=== PATIENT | male | born 1935 | race Caucasian/White ===

== ENCOUNTER 2017-07-23 13:18 | Inpatient (IN) | payer MEDICARE ==
[~2017-07-23] VITALS: Ht 182.9 cm; Wt 97.3 kg
--- NOTE | ~2017-07-23 | PN ---
PATIENT:EJ CROWLEY MEDICAL RECORD: [id number] LOCATION:[facility] ADMISSION DATE: 07/23/17 PROGRESS NOTE DATE OF SERVICE: 07/28/2017 SUBJECTIVE: The patient's case was discussed with staff. He has no new complaint. OBJECTIVE: The patient is in good behavioral control with limited insight about his condition. He tolerates his medicines well. ASSESSMENT: No change in diagnoses. PLAN: Brief supportive and educational interventions were made. The patient will be maintained on current medicines. His long-term prognosis is guarded. TRANSINT:[id number] Voice Confirmation ID: [id number] DOCUMENT ID: [id number] MIKE BOSWELL MD at 1308 CC: [id number] DICTATION DATE: 07/28/17 1413 PRODUCE BUYER: 07/28/17 1436 ADM IN [facility] [address] [place] [address]
--- NOTE | ~2017-07-23 | PN ---
PATIENT:EJ CROWLEY MEDICAL RECORD: [id number] LOCATION:[facility] ADMISSION DATE: 07/23/17 PROGRESS NOTE DATE OF SERVICE: 08/05/2017 SUBJECTIVE: The patient's case was discussed with staff. He has no new complaint. OBJECTIVE: The patient is in good behavioral control with limited insight about his condition. He has no active thoughts of harming himself or others. ASSESSMENT: No change in diagnoses. PLAN: The [facility] will be [facility] to the [facility] today. His long-term prognosis is guarded. TRANSINT:[id number] Voice Confirmation ID: [id number] DOCUMENT ID: [id number] MIKE BOSWELL MD at 1412 CC: [id number] DICTATION DATE: 08/05/17 1346 INDUSTRIAL CONTROLLER: 08/05/17 1442 DIS IN 08/05/17 [address] [place] [address]
--- NOTE | ~2017-07-23 | PN ---
PATIENT:EJ CROWLEY MEDICAL RECORD: [id number] LOCATION:[facility] ADMISSION DATE: 07/23/17 PROGRESS NOTE DATE OF SERVICE: 08/04/2017 SUBJECTIVE: The patient's case was discussed with staff. He has no new complaint. OBJECTIVE: The patient is in good behavioral control with limited insight about his condition. He tolerates his medicines well. ASSESSMENT: No change in diagnosis. PLAN: I anticipate the patient can be transitioned out of the hospital tomorrow. The family has decided that they do not want long-term care in the group home and he will be returned to his home and the family is going to care for him. TRANSINT:[id number] Voice Confirmation ID: [id number] DOCUMENT ID: [id number] MIKE BOSWELL MD at 1339 CC: [id number] DICTATION DATE: 08/04/17 1448 INSURANCE APPRAISER: 08/04/17 1711 DIS IN 08/05/17 [facility] [address] [place] [address]
--- NOTE | ~2017-07-23 | PN ---
PATIENT:EJ CROWLEY MEDICAL RECORD: [id number] LOCATION:[facility] ADMISSION DATE: 07/23/17 PROGRESS NOTE DATE OF SERVICE: 07/26/2017 SUBJECTIVE: The patient's case was discussed with staff. He has no new complaint. OBJECTIVE: The patient is in good behavioral control, but severely impaired cognitively. He is not eating as well as I would like, but he is also significantly overweight. ASSESSMENT: No change in diagnoses. PLAN: Supportive and educational interventions were made. Long-term prognosis is guarded. TRANSINT:[id number] Voice Confirmation ID: [id number] DOCUMENT ID: [id number] MIKE BOSWELL MD at 1435 CC: [id number] DICTATION DATE: 07/26/17 1444 ELECTROCARDIOGRAM TECHNICIAN: 07/26/17 1639 ADM IN [facility] [address] [place] [address]
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
--- NOTE | ~2017-07-23 | PN ---
PATIENT:EJ CROWLEY MEDICAL RECORD: [id number] LOCATION:[facility] ADMISSION DATE: 07/23/17 PROGRESS NOTE DATE OF SERVICE: 07/29/2017 SUBJECTIVE: The patient's case was discussed with staff. He has no new complaint. OBJECTIVE: The patient is in good behavioral control and has no thoughts of harming himself or others. He is sleeping and eating reasonably well. ASSESSMENT: No change in diagnoses. PLAN: Current medicines have been reviewed and will be maintained. Long-term prognosis is guarded. TRANSINT:[id number] Voice Confirmation ID: [id number] DOCUMENT ID: [id number] MIKE BOSWELL MD at 1324 CC: [id number] DICTATION DATE: 07/29/17 1414 COMPLIANCE ANALYST: 07/29/17 1430 ADM IN [place] [id number] [place] [address]
--- NOTE | ~2017-07-23 | PN ---
PATIENT:EJ CROWLEY MEDICAL RECORD: [id number] LOCATION:[facility]112 ADMISSION DATE: 07/23/17 PROGRESS NOTE DATE OF SERVICE: 07/27/2017 SUBJECTIVE: The patient's case was discussed with staff. He has no new complaint. OBJECTIVE: The patient is not eating well, but he is sleeping well. He is impaired cognitively, but has not been aggressive here. ASSESSMENT: No change in diagnoses. PLAN: The patient will be maintained on current medicines, which I have reviewed. I am electing not to start him on an appetite stimulating medicine despite how he has eaten in the past 2 days. He is significantly overweight. He says he does not like the food we prepare. I do not think it is necessary at this point. In addition to this, I am going to start him on a low dose of Namenda for its memory enhancing properties. He will be monitored for clinical changes associated with its use. TRANSINT:[id number] Voice Confirmation ID: [id number] DOCUMENT ID: [id number] MIKE BOSWELL MD at 1352 CC: [id number] DICTATION DATE: 07/27/17 1447 SOLE MOLDING MACHINE OPERATOR: 07/27/17 1607 ADM IN [address] [id number] [place] [address]
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
--- NOTE | ~2017-07-23 | PN ---
PATIENT:EJ CROWLEY MEDICAL RECORD: [id number] LOCATION:[place]112 ADMISSION DATE: 07/23/17 PROGRESS NOTE DATE OF SERVICE: 08/02/2017 SUBJECTIVE: The patient's case was discussed with staff. He has no new complaint. OBJECTIVE: The patient denies intent to harm himself or others. He is oriented to person and place, but not to time or situation. He has not been aggressive. He does have a Depakote level that is close to therapeutic from a week ago. I am going to order another level. ASSESSMENT: No change in diagnoses. PLAN: Current medicines and therapies have been reviewed. I anticipate him being transitioned out of the hospital soon if this level of improvement is maintained. TRANSINT:[id number] Voice Confirmation ID: [id number] DOCUMENT ID: [id number] MIKE BOSWELL MD at 1458 CC: [id number] DICTATION DATE: 08/02/17 1426 GLUER AND WEDGER: 08/02/17 1435 ADM IN [place] [address] [place] [id number]
--- NOTE | ~2017-07-23 | PN ---
PATIENT:EJ CROWLEY MEDICAL RECORD: [id number] LOCATION:JORGE [facility]112 ADMISSION DATE: 07/23/17 PROGRESS NOTE DATE OF SERVICE: 07/30/2017 SUBJECTIVE: No new complaint. OBJECTIVE: Staff is currently working on placement. Report has been submitted to [facility] and associates. The patient has been cooperative. On exam, mood is pleasant. Affect overall was constricted. Speech is rather terse. Content of thought shows no evidence of overt psychosis. Sensorium shows no change. ASSESSMENT: No change in diagnosis. PLAN: 1. Continue current medication. 2. Continue supportive therapy. TRANSINT:[id number] Voice Confirmation ID: [id number] DOCUMENT ID: [id number] LOGAN JAVIER III, MD at 0535 CC: [id number] DICTATION DATE: 07/30/17 1121 REFINERY TECHNICIAN: 07/30/17 1326 ADM IN [id number] [place] [address]
--- NOTE | ~2017-07-23 | PN ---
PATIENT:EJ CROWLEY MEDICAL RECORD: [id number] LOCATION:JOR[facility]112 ADMISSION DATE: 07/23/17 PROGRESS NOTE DATE OF SERVICE: 08/03/2017 SUBJECTIVE: The patient's case was discussed with staff. He has no new complaint. OBJECTIVE: The patient is in good behavioral control with poor insight about his condition. He tolerates his medicines well. ASSESSMENT: No change in diagnoses. PLAN: The patient is going to be placed in a halfway in [facility] has declined him. He is still being considered by Geovanna Mendez as a possible new patient. Once arrangement for placement has been made, I anticipate he can be discharged. TRANSINT:[id number] Voice Confirmation ID: [id number] DOCUMENT ID: [id number] MIKE BOSWELL MD at 1436 CC: [id number] DICTATION DATE: 08/03/17 1508 DIGITAL MEDIA INTERN: 08/03/17 1536 ADM IN [address] [place] [place] [address]
[2017-07-23 14:11] VITALS: BP 125/87; BMI 32.6
[2017-07-23] MEDS ORDERED: DEPAKOTE500 MG PO (16:04)
[2017-07-23] MEDS ORDERED: LIPITOR80 MG PO (16:05)
[2017-07-23] MEDS ORDERED: FISH OIL 1,0001 CA1 PO (16:05)
[2017-07-23] MEDS ORDERED: VITAMIN B-12500 MC1 PO (16:06)
[2017-07-23] MEDS ORDERED: ASPIRIN325 MG PO (16:06)
[2017-07-23] MEDS ORDERED: FERRETTS324 MG PO (16:07)
[2017-07-23] MEDS ORDERED: MIRALAX17 GM PO (16:07)
[2017-07-23] MEDS ORDERED: OYSCO 500+D TAB1 TAB PO (16:07)
[2017-07-23] MEDS ORDERED: ASCORBIC ACID500 MG PO (16:08)
[2017-07-23] MEDS ORDERED: SENNA8.6 MG PO (16:08)
[2017-07-23] MEDS ORDERED: NEURONTIN800 MG PO (16:09)
[2017-07-23] MEDS ORDERED: ZYLOPRIM300 MG PO (16:09)
[2017-07-23] MEDS ORDERED: VITAMIN D31000 UNIT PO (16:09)
[2017-07-23] MEDS ORDERED: GLUCOPHAGE1000 MG PO (16:10)
[2017-07-23] MEDS ORDERED: COZAAR25 MG PO (16:10)
[2017-07-23] MEDS ORDERED: ZOLOFT100 MG PO (16:10)
[2017-07-23] MEDS ORDERED: NORCO 7.5/325 T1 TA1 PO (16:11)
[2017-07-23] MEDS ORDERED: NOVOLOG100 U/M1 SC (16:48)
[2017-07-23] MEDS ORDERED: NOVOLIN 70/30 110 ML SC (16:49)
[2017-07-23 16:54] LABS: BASOPHILS 0.1 % (0-2); EOSINOPHILS 0.9 % (0-7); HEMOGLOBIN 15.2 g/dL (13.5-17.5); IMMATURE GRANULOCYTES 0.5 % (0-5); LYMPHOCYTES 15.8 % (15-50); MCHC 33.8 g/dL (31.0-37.0); MCV 91.8 fL (80.0-100.0); MONOCYTES 7.7 % (2-11); PLATELET COUNT 195 10x3/uL (130-400); RDW 14.7 % (11.5-14.5); WBC 12.2 10x3/uL (4.8-10.8)
[2017-07-23 18:03] LABS: ALBUMIN 3.7 g/dL (3.4-5.0); BILIRUBIN - TOTAL 0.57 mg/dL (0.2-1.3); CALCIUM 8.9 mg/dL (8.5-10.1); CARBON DIOXIDE 25.7 mmol/L (21.0-32.0); CHOL - HDL RATIO 4.5 ratio (2.3-4.9); CREATININE - SERUM 1.2 mg/dL (0.6-1.3); LDL-HDL RATIO 2.7 ratio (1.5-3.5); POTASSIUM - SERUM 3.7 mmol/L (3.5-5.1); PROTEIN - SERUM 7.9 g/dL (6.4-8.2); THYROID STIMULATING HORMONE 1.19 uIU/mL (0.36-3.74)
[2017-07-23 20:17] VITALS: BP 113/57
[2017-07-24 07:44] VITALS: BP 126/44
[2017-07-24 09:10] VITALS: BMI 32.5
[2017-07-24 19:56] VITALS: BP 140/68
[2017-07-25 07:23] VITALS: BP 121/86
[2017-07-25 19:55] VITALS: BP 115/74
[2017-07-26 07:00] VITALS: BP 108/59
[2017-07-26 07:09] LABS: VITAMIN D 25 HYDROXY 28.6 ng/mL (30.0-100.0)
[2017-07-26 11:13] LABS: FOLATE (FOLIC ACID) - SERUM >20.0 ng/mL (>3.0)
[2017-07-26 21:02] VITALS: BP 113/72
[2017-07-27 06:15] LABS: RAPID PLASMA REAGIN Non Reactive (Non Reactive)
[2017-07-27 07:49] VITALS: BP 110/69
[2017-07-27 20:25] VITALS: BP 124/71
[2017-07-28 09:30] VITALS: BP 128/80
[2017-07-28 20:02] VITALS: BP 137/80
[2017-07-29 08:03] VITALS: BP 130/70
[2017-07-29 20:17] VITALS: BP 108/59
[2017-07-30 08:12] VITALS: BP 116/62
[2017-07-30 20:35] VITALS: BP 144/67
[2017-07-31 09:35] VITALS: BP 108/68
[2017-07-31 20:50] VITALS: BP 136/93
[2017-08-01 08:49] VITALS: BP 105/59
[2017-08-01 20:15] VITALS: BP 103/72
[2017-08-02 09:34] VITALS: BP 122/80
[2017-08-02 10:07] VITALS: Ht 182.9 cm; Wt 97.3 kg
[2017-08-02 20:32] VITALS: BP 123/76
[2017-08-03 08:26] VITALS: BP 117/72
[2017-08-03 20:21] VITALS: BP 102/73
[2017-08-04 09:33] VITALS: BP 108/56
[2017-08-04] MEDS ORDERED: ACETAMINOPHEN325 MG PO (14:50)
[2017-08-04] MEDS ORDERED: NEURONTIN 300300 MG PO (14:50)
[2017-08-04] MEDS ORDERED: LIDODERM 5 %1 PATCH TRANSDERM (14:51)
[2017-08-04] MEDS ORDERED: NAMENDA5 MG PO (14:51)
[2017-08-04 19:21] VITALS: BP 134/66
[2017-08-05 07:00] VITALS: BP 102/58
== END 2017-08-05 13:08 | disposition home or self-care (01) | DRG 914 ==
LOC: D.PSYCH 13:18
PROVIDERS: Psychiatry & Neurology Psychiatry
DX: S09.90XS Unspecified injury of head, sequela (principal); F01.51 Vascular dementia, unspecified severity, with behavioral disturbance; V89.2XXS Person injured in unspecified motor-vehicle accident, traffic, sequela; E66.3 Overweight; M16.12 Unilateral primary osteoarthritis, left hip; E53.8 Deficiency of other specified B group vitamins; E55.9 Vitamin D deficiency, unspecified; F41.8 Other specified anxiety disorders; K59.09 Other constipation; Z74.09 Other reduced mobility; Z87.891 Personal history of nicotine dependence; E78.5 Hyperlipidemia, unspecified; I10 Essential (primary) hypertension; E11.9 Type 2 diabetes mellitus without complications